=== PATIENT | female | born 1985 | race Caucasian/White ===

== ENCOUNTER 2025-03-20 18:07 | Emergency (ER) | payer OTHER ==
[~2025-03-20] VITALS: Ht 170.2 cm; Wt 73.0 kg
[2025-03-20 18:12] VITALS: O2SAT 100
[2025-03-20] MEDS ORDERED: CEFEPIME 2,000 MG in DEXT 5% WATER 100 ML IV STA (18:43)
[2025-03-20 19:41] LABS: HEMATOCRIT. 36.9 % (36.0-48.0); HEMOGLOBIN. 12.3 g/dL (12.0-16.0); MEAN PLATELET VOLUME 8.0 fl (7.4-10.4); PLATELET 196 x1000/uL (130-400); RED BLOOD CELL COUNT 4.00 mill/uL (4.2-5.4); RED CELL DISTRIBUTION WIDTH 13.0 % (11.6-14.6)
[2025-03-20] MEDS: SODIUM CHLORIDE 0.9% (SEPSIS BOLUS) IV ONE (19:48)
[2025-03-20] MEDS: MORPHINE SULFATE 4 MG/ML INJ (FOR IV/IM USE) IV ONE (19:49)
[2025-03-20] MEDS: ONDANSETRON HCL 4MG/2ML INJ IV ONE (19:49)
[2025-03-20] MEDS: METRONIDAZOLE 500 MG PREMIX 100 ML IV ONE (19:49)
[2025-03-20 19:57] LABS: CREATININE 0.8 mg/dL (0.6-1.0)
[2025-03-20 19:58] LABS: UREA NITROGEN BLOOD < 5 mg/dL (9-23)
[2025-03-20 19:59] LABS: ASPARTATE AMINOTRANSFERASE 50 IU/L (<34)
[2025-03-20 20:00] LABS: BILIRUBIN DIRECT 0.2 mg/dL (<=3.0); BILIRUBIN TOTAL 0.5 mg/dL (0.1-1.0); PROTEIN TOTAL 7.3 g/dL (6.0-8.3)
[2025-03-20 20:10] LABS: HCG SCREEN NEGATIVE
[2025-03-20 20:17] LABS: BAND% 1.0 % (1.0-6.0); LYMPHOCYTES % MANUAL 3.0 % (20.0-60.0); MONOCYTES % MANUAL 4.0 % (2.0-8.0); NEUTROPHILS % MANUAL 92.0 % (45.0-75.0); PLATELET ESTIMATE NORMAL
[2025-03-20 20:25] LABS: INR 1.1
[2025-03-20] MEDS: CEFEPIME 2GM/100ML 100 ML IV SCH (21:49)
[2025-03-20 22:27] LABS: CLARITY URINE CLEAR (CLEAR); COLOR URINE YELLOW (YELLOW); GLUCOSE URINE 1+ (NEGATIVE); KETONES URINE TRACE (NEGATIVE); LEUKOCYTE ESTERASE URINE 1+ (NEGATIVE); NITRITE URINE NEGATIVE (NEGATIVE); OCCULT BLOOD URINE NEGATIVE (NEGATIVE); PH URINE 7.0 (4.5-8.0); PROTEIN URINE NEGATIVE (NEGATIVE); SPECIFIC GRAVITY URINE 1.031 (1.005-1.030); UROBILINOGEN URINE 0.2 E.U./dL (0.2-1.0)
[2025-03-20 22:59] LABS: BACTERIA URINE 1+; RBC URINE 0-2 /hpf (0-2); SQUAMOUS EPITHELIAL CELL URINE FEW /lpf (RARE/1+)
[2025-03-21 03:15] VITALS: BP 123/77; PULSE 90; RESP 35; TEMP 37.3; O2SAT 96
== END 2025-03-21 03:36 | disposition short-term general hospital (02) ==
LOC: ER 18:07 → CMPBEDREQ 03-21 09:02
DX: R10.84 Generalized abdominal pain (principal); R65.10 Systemic inflammatory response syndrome (SIRS) of non-infectious origin without acute organ dysfunction; Z88.0 Allergy status to penicillin; Z90.49 Acquired absence of other specified parts of digestive tract; Z79.899 Other long term (current) drug therapy
CPT/HCPCS: 80076; 80048; 81003; 84703; 83605; 83690; 83735; 85025; 85610; 86850; 86900; 86901; 87040; 36415; 84145; 71045; 74177; 96367; 96365; 96366; 96375; 99291; 73030; Q9967; J0692; J3490; J2405; J2270; Z7610; J7030; J7060